=== PATIENT | female | born 1980 | race Caucasian/White ===

== ENCOUNTER 2024-02-10 07:05 | Day surgery (SDC) | payer MEDICAID, SELFPAY ==
--- NOTE | 2024-02-05 15:07 | ESHP_ITS ---
RE: SEBAS ÁLVAREZ : 1980 DATE OF ADMISSION: 02/10/2024 HISTORY OF PRESENT ILLNESS: This is a 43-year-old 6, para 3-0-3-3 who has abnormal uterine bleeding who presents for endometrial ablation. PAST MEDICAL HISTORY: Cystocele, uterine prolapse, genuine stress urinary incontinence, depression, degenerative disc disease, lumbar spine; cervical dysplasia and childbirth. PAST SURGICAL HISTORY: D and C in 2000 for miscarriage at six weeks' gestation. ALLERGIES: NO KNOWN DRUG ALLERGIES. MEDICATIONS: 1. Zoloft 25 mg one p.o. daily. 2. Wegovy injection once weekly. FAMILY HISTORY: Maternal grandmother and maternal grandfather have colon cancer. Paternal grandmother has breast cancer. SOCIAL HISTORY: She denies any alcohol drug use or smoking. PHYSICAL EXAMINATION: VITAL SIGNS: Blood pressure 127/62, heart rate 88, respirations 18, and temperature 98.2. HEENT: Oropharynx and sclerae are clear. LUNGS: Clear to auscultation bilaterally. HEART: Regular rate and rhythm. ABDOMEN: Nontender. No scars noted. PELVIC: Deferred. EXTREMITIES: Nontender. SKIN: No gross rashes or lesions. NEUROLOGIC: No focal deficit. ASSESSMENT: Abnormal uterine bleeding. PLAN: Hysteroscopy, fractional dilatation and curettage, and NovaSure endometrial ablation. Informed consent was obtained. The patient was made aware of the risks, complications, alternatives, and benefits of the proposed procedure and she agrees. DT: 13:37:56 TT: 15:06:00 Ref: [id number] - TID: [id number] [email or web address]
[2024-02-09 09:16] VITALS: BMI 27.6
[2024-02-09 09:51] LABS: Basophils % (Auto) 1 % (0-2.5); Eosinophils # (Auto) 0.1 Thou/mm3 (0.0-0.5); Eosinophils % (Auto) 1 % (0-10); Hematocrit 38.6 % (36.0-46.0); Hemoglobin 13.8 g/dL (12.0-16.0); Immature Granulocytes % (Auto) 0 % (0-0); Immature Granulocytes Auto 0.01 Thou/mm3 (0.00-0.00); Lymphocytes # (Auto) 2.8 Thou/mm3 (1.0-4.8); Lymphocytes % (Auto) 43 % (10-50); Mean Corpuscular HGB Conc 35.8 g/dl (31.0-37.0); Mean Corpuscular Hemoglobin 32.2 pg (25.0-35.0); Mean Corpuscular Volume 90 fL (80-100); Monocytes # (Auto) 0.5 Thou/mm3 (0.0-0.8); Monocytes % (Auto) 7 % (0-12); Neutrophils # (Auto) 3.1 Thou/mm3 (1.8-7.7); Neutrophils % (Auto) 48 % (37-80); Nucleated Red Blood Cell % 0 /100 WBC (0); Platelet Count 177 Thou/mm3 (140-440); RDW Standard Deviation 39.3 fL (36.4-46.3); Red Blood Count 4.29 Miln/mm3 (4.00-5.20); White Blood Count 6.4 Thou/mm3 (3.6-11.0)
[2024-02-09 09:58] LABS: Partial Thromboplastin Time 25.1 Seconds (22.0-36.0); Prothrombin Time 10.7 Seconds (9.0-12.2)
[2024-02-09 10:02] LABS: Alanine Aminotransferase 13 U/L (10-49); Albumin, Serum 4.4 gm/dL (3.5-5.0); Albumin/Globulin Ratio 1.9 (1.2-2.2); Alkaline Phosphatase 44 U/L (46-116); Anion Gap 7 (7-16); Aspartate Amino Transferase 14 U/L (0-34); BUN/Creatinine Ratio 14 Ratio (12-20); Beta HCG,Quantitative < 1 mIU/mL (<5.0); Bilirubin,Total 0.6 mg/dL (0.3-1.2); Blood Urea Nitrogen 10 mg/dL (9-23); Calcium 9.1 mg/dL (8.3-10.6); Calcium (Corrected) 9.1 mg/dL (8.5-10.1); Carbon Dioxide 25.4 mMol/L (20.0-31.0); Chloride 107 mMol/L (98-107); Creatinine (Component) 0.7 mg/dL (0.6-1.3); Estimated Creatinine Clearance 102.6 mL/min (>60); Globulin 2.3 gm/dL (2.3-3.5); Glucose 107 mg/dL (74-106); Osmolality,Calculated 276 (275-295); Potassium 4.2 mMol/L (3.4-5.1); Sodium 139 mMol/L (136-145); Total Protein 6.7 gm/dL (5.7-8.2); eGFR > 60 See Note
--- NOTE | 2024-02-09 15:09 | SUR.PREOP ---
Pt notified to come in at 0700 tomorrow for surgery.
[2024-02-10] VITALS (7 sets, daily range): BP systolic 104–131; BP diastolic 72–90; PULSE 73–83; RESP 15–17; TEMP 36.3–36.9; O2SAT 96–98; BMI 27.9
--- NOTE | 2024-02-10 09:45 | SUR.PHASEI ---
0934 Patient arrived to recovery resting comfortably in [facility], drowsy and able to arouse with verbal prompting, breathing unlabored, vital signs stable, denies pain, dressing intact to vaginal area; peripad, no bleeding noted, lung sounds clear upon auscultation, bilateral radial pulses present when palpated, report received from Sid DURAND and Dr. Santos
--- NOTE | 2024-02-10 10:35 | SUR.PHASEII ---
1035 Patient meets discharge criteria from recovery, awake and alert, breathing unlabored, vital signs stable, denies pain, dressing intact; no bleeding noted, patient eating ice chips; tolerating well, denies nausea, patient able to dress herself into her clothing, discharge instructions given to patient and patients mother, mother signed discharge instructions. Patient given all her belongings prior to discharge, transported via wheelchair and left in a private vehicle.
--- NOTE | 2024-02-13 10:01 | ESOP_ITS ---
RE: SEBAS ÁLVAREZ : 1980 DATE OF OPERATION: 02/10/2024 PREOPERATIVE DIAGNOSIS: Abnormal uterine bleeding. POSTOPERATIVE DIAGNOSIS: Abnormal uterine bleeding. PROCEDURES: Hysteroscopy, fractional dilatation and curettage and NovaSure endometrial ablation. SURGEON: Gelacio Odell D.O. TOUCHER UP: None. ANESTHESIA: General. ANESTHESIOLOGIST: Dr. Santos. ESTIMATED BLOOD LOSS: 3 mL. COMPLICATIONS: None. COUNTS: Correct. PATHOLOGY: Endocervical curettings and endometrial curettings. FINDINGS: Normal-appearing uterine cavity and endocervix. Uterus sounds to 9.0 cm, anteverted. Cervical length is 3.5 cm. Uterine cavity length is 5.5 cm. Uterine cavity width is 3.0 cm. Power setting was 91 coleman. Duration of ablation was 1 minute and 33 seconds. DESCRIPTION OF PROCEDURE: After proper informed consent was obtained and the patient was made aware of the risks, complications, alternatives, benefits of the proposed procedure, she was taken to the operating room where she underwent induction of general anesthesia. She was placed in dorsal lithotomy position. She was prepped and draped in the usual sterile fashion. A timeout was performed and a speculum was placed in the vagina. Tenaculum was placed on the anterior lip of the cervix. The cervix was dilated to accommodate the 5.5-mm Omni hysteroscope. The cervix was measured at 3.5 cm. The uterus sounded to 9.0 cm, anteverted. The Omni hysteroscope was then utilized to visualize the endocervix and uterine cavity. The above findings were noted. The endocervix was curetted with a Kevorkian curette and specimen sent to pathology. The uterine cavity was curetted and specimen sent to pathology. The NovaSure catheter was plugged into the controller and went through its purge cycle. The width meter was working correctly on the array. The array was retracted into the sheath and the catheter sheath appropriately seated in the uterine cavity. The ablation was performed for a total of 1 minute and 33 seconds before the controller shut off. The array was retracted into the sheath, removed from the uterine cavity, redeployed and found to be complete and intact. There was some bleeding noted on the anterior lip of the cervix. With the Bovie cautery, hemostasis was achieved. All instruments were removed from the vagina. She was reversed from general anesthesia in the supine position and transferred to the recovery room in stable condition. She tolerated the procedure well. Counts were correct. I discussed with the patient the nature of her condition, the intraoperative findings, expectations for recovery. All questions answered. DT: 09:53:34 TT: 19:55:00 Ref: [id number] - TID: [id number]
== END 2024-02-10 10:35 | disposition home or self-care (01) ==
PROVIDERS: PCP Nurse Practitioner Family; Referring Provider Specialist; Visit Provider Specialist
PROC: 0U5B8ZZ Destruction of Endometrium, Via Natural or Artificial Opening Endoscopic (ICD-10-PCS; CPT 58563; principal; 2024-02-10 09:00)
DX: D26.0 Other benign neoplasm of cervix uteri (principal); N93.9 Abnormal uterine and vaginal bleeding, unspecified
CPT/HCPCS: 58563; 36415; 80053; 84702; 85025; 85610; 85730; 86850; 86900; 86901; A4217; A4649; J0690; J1100; J2250; J2405; J2704; J3010; J3490; J2598